=== PATIENT | male | born 1960 | race Caucasian/White ===

== ENCOUNTER 2019-12-02 11:00 | Emergency (ER) | payer BC ==
[~2019-12-02] VITALS: Ht 180.3 cm; Wt 84.8 kg
[2019-12-02] MEDS ORDERED: ULTRAM50 MG PO (12:13)
[2019-12-02] MEDS ORDERED: NAPROSYN500 MG PEG (12:13)
[2019-12-02] MEDS ORDERED: PREDNISONE20 MG PO (12:13)
[2019-12-02] MEDS ORDERED: DEXAMETHASONE SOD PHOS 10 MG/1 ML VIAL IV ONE (12:30)
--- NOTE | 2019-12-02 12:54 | Diagnostic Imaging Report ---
EXAMINATION: Head and cervical spine CT without contrast. HISTORY: Status post fall, head trauma on the left side, loss of consciousness 6 days ago. COMPARISON: None. TECHNIQUE: Multidetector axial images were obtained without contrast from the foramen magnum to the vertex and through the cervical spine. The images were reconstructed using brain and bone algorithms. Thin section brain images were reformatted into coronal and sagittal planes. Dose modulation, iterative reconstruction, and/or weight based adjustment of the mA/kV was utilized to reduce the radiation dose to as low as reasonably achievable. HEAD CT FINDINGS: Skull/scalp: No lytic or blastic lesions. Minimal left superior parietal scalp swelling without underlying fractures. Parenchyma: A few scattered white matter hypodensities, most likely nonspecific chronic microvascular ischemic changes. No mass, hemorrhage or CT evidence of acute vascular insult. Brain volume: Normal for age. Ventricles: No hydrocephalus or displacement. Arteries: No density suggestive of thrombus. Dural sinuses: No abnormal density. Extra-axial spaces: No abnormal density. Foramen magnum: No mass, Chiari malformation, or basilar invagination. Sella: No obvious mass. Paranasal/mastoid sinuses: Imaged portions unremarkable. CERVICAL SPINE CT FINDINGS: Alignment:Normal alignment and lordosis. Soft tissues: Normal. Vertebrae: -Acute nonsignificantly displaced fracture through the base of the spinous processes of C6 , extending to the right lamina and right inferior articular pillar. -Nondisplaced fractures of the right transverse process of C6 and C7. Degenerative changes: C1-C2: Normal C2-C3: Prominent uncovertebral and facet arthrosis on the left. Mild left foraminal stenosis. C3-C4: Prominent uncovertebral and mainly facet arthrosis on the left. No significant stenoses C4-C5: Uncovertebral and facet arthrosis. No significant stenoses C5-C6: Uncovertebral and facet arthrosis and in the right side. Moderate foraminal stenoses bilaterally. C6-C7: Uncovertebral and facet arthrosis. Moderately severe left foraminal stenosis. C7-T1: Normal IMPRESSION: Head CT: 1. No acute postraumatic intracranial hemorrhage. 2. Minimal left parietal scalp swelling without underlying fractures. 3. Mild white matter chronic microvascular ischemic changes. Cervical spine CT: 1. Acute nondisplaced fracture of the right C6 lamina/articular pillar. 2. Acute nondisplaced fractures of the right transverse processes of C6 and C7. 3. Chronic degenerative changes as described. Note: Acute post traumatic spinal cord, vascular or ligamentous injury cannot adequately be assessed with CT. The findings were discussed with the attending physician Dr. Chema chowdhury on 12/02/2019 at 12:40 PM Signed by: Dr. Mary Davis M.D. on 12/02/2019 12:51 PM
--- NOTE | 2019-12-02 13:02 | NUR ---
INITIATED TRANSFER TO [facility]
--- NOTE | 2019-12-02 13:15 | NUR ---
PT REFUSING TRANSFER, PT UNDERSTANDS THE RISKS OF LEAVING COULD RESULT IN DISABILITY AND/OR . DR KISER NOTIFIED AND SPOKE TO PT, PT SIGNED AMA AND PLACED IN CHART. PT STATED HE WAS GOING TO DRIVE HIMSELF TO [facility]. PT VERBALIZES UNDERSTANDING OF CONTINUED WEAR OF C-COLLAR. NOTIFIED TRANSFER CENTER PT WAS GOING TO DRIVE HIMSELF TO THEIR ER.
[2019-12-02 13:36] VITALS: BP 148/78
== END 2019-12-02 13:39 | disposition left against medical advice (07) ==
LOC: FSED 11:00
DX: S12.591A Other nondisplaced fracture of sixth cervical vertebra, initial encounter for closed fracture (principal); S00.83XA Contusion of other part of head, initial encounter; M54.12 Radiculopathy, cervical region; R51 Headache; W10.8XXA Fall (on) (from) other stairs and steps, initial encounter; Y92.008 Other place in unspecified non-institutional (private) residence as the place of occurrence of the external cause; I10 Essential (primary) hypertension; E78.5 Hyperlipidemia, unspecified; F41.9 Anxiety disorder, unspecified
CPT/HCPCS: 70450; 72125; 99284; J1100